=== PATIENT | male | born 1960 | race Caucasian/White ===

== ENCOUNTER 2018-05-06 07:37 | Day surgery (SDC) | payer BC ==
[2018-05-06] MEDS ORDERED: Bupivacaine 0.25% 30 ML SDV INJECT ONE (09:25)
[2018-05-06] MEDS ORDERED: Lidocaine 1% with EPINEPHrine 1:100,000 20 ML MDV INJECT ONE (09:25)
--- NOTE | 2018-05-06 11:15 | PCM.OPNOTE ---
- General Post-Op/Procedure Note Date of Surgery/Procedure: 05/06/18 Findings: BCC right face Pre Op Diagnosis: BCC Right Face Post-Op Diagnosis: same Anesthesia Technique: Local Primary Surgeon: Miguel Santiago Pathology: Frozen section and permanent right face lesion EBL in mLs: 3 Complications: None Condition: Good
--- NOTE | 2018-05-06 11:22 | PCM.HP ---
H&P History of Present Illness - General Date of Service: 05/06/18 Admit Problem/Dx: Admission Diagnosis/Problem Admission Diagnosis/Problem Lesion of external ear Source of Information: Patient History Limitations: Reports: No Limitations - History of Present Illness Initial Comments - Free Text/Narative: Here fro excision of recurrent BCC right face - Related Data Allergies/Adverse Reactions: Allergies Allergy/AdvReac Type Severity Reaction Status Date / Time No Known Allergies Allergy Verified 05/05/18 11:13 Home Medications: Home Meds Lisinopril 10 mg PO DAILY 05/05/18 [History] Multivitamin with Minerals [Multiple Vitamin] 1 ea PO DAILY 05/05/18 [History] Omeprazole 20 mg PO DAILY 05/05/18 [History] Social & Family History - Tobacco Use Smoking Status *Q: Never Smoker - Caffeine Use Caffeine Use: Reports: Coffee - Alcohol Use Days Per Week of Alcohol Use: 7 Number of Drinks Per Day: 5 Total Drinks Per Week: 35 - Recreational Drug Use Recreational Drug Use: No H&P Review of Systems - Review of Systems: Review Of Systems: ROS reveals no pertinent complaints other than HPI. Exam - Exam Exam: See Below - Vital Signs Vital Signs: Last Vital Signs Temp 97.1 F 05/06/18 08:01 Pulse 58 L 05/06/18 11:00 Resp 14 05/06/18 11:00 BP 105/65 05/06/18 11:00 Pulse Ox 100 05/06/18 11:00 Weight: 84.368 kg - Exam General: Alert, Oriented Lungs: Clear to Auscultation Cardiovascular: Regular Rate, Regular Rhythm Problem List Initiated/Reviewed/Updated: Yes Orders Last 24hrs: Active Orders 24 hr Category Date Time Status Patient Status [ADT] Routine ADT 05/06/18 07:45 Ordered Ready for Discharge [RC] PER UNIT ROUTINE Care 05/06/18 11:19 Ordered Verify Patient Consent Obtain [RC] ASDIRECTED Care 05/06/18 07:45 Active Resuscitation Status Routine Resus Stat 05/05/18 11:15 Ordered Assessment/Plan Comment:: Recurrent BCC Right Face Excision with Frozen section
--- NOTE | 2018-05-06 13:51 | OR ---
DATE OF OPERATION: 05/06/2018 SURGEON: Miguel Santiago MD PREOPERATIVE DIAGNOSIS: Recurrent basal cell carcinoma, right face. POSTOPERATIVE DIAGNOSIS: Recurrent basal cell carcinoma, right face. PROCEDURE: Excision of basal cell carcinoma, right face. ANESTHESIA: Local. DESCRIPTION OF PROCEDURE: The patient was brought to the procedure room, where he was placed on his left side. The right side of his face was prepped with Betadine and draped sterilely. A 50:50 mixture of 1% Lidocaine with epinephrine and 0.25% Marcaine was infiltrated in the preauricular area, on the side of the face. The area of obvious recurrence measured 1 cm in diameter, and this was elliptically excised with 2 mm clear margins making excision with 14 mm. This was orientated for the pathologist. Frozen section analysis was reviewed with Dr. Loo. There were at least three areas where it was close to the margin, on the superior edge, anteriorly and posteriorly, and on the inferior edge inferiorly. Therefore, I elected to take a circumferential new 2 mm margin that will be sent for permanent section analysis. This was orientated for the pathologist. The defect with tension from the skin was almost 2 cm in diameter. By undermining the inferior and superior edges of the skin, I was able to get this to reapproximate with minimal tension. This was done so using 3-0 Vicryl subcutaneous sutures and interrupted 5-0 Prolene skin sutures with the incision orientated in a horizontal fashion. Antibiotic ointment and a dressing were applied. The patient tolerated the procedure well. ESTIMATED BLOOD LOSS: 3 mL. /[id number]/ALYSSA
== END 2018-05-06 11:36 | disposition home or self-care (01) ==
LOC: FB.SDS 07:37
PROVIDERS: ATTEND Surgery
DX: C44.212 Basal cell carcinoma of skin of right ear and external auricular canal (principal); F17.220 Nicotine dependence, chewing tobacco, uncomplicated; K21.0 Gastro-esophageal reflux disease with esophagitis; Z79.899 Other long term (current) drug therapy
CPT/HCPCS: 88305; 88331; 88332; J3490